=== PATIENT | female | born 1950 | race Caucasian/White ===

== ENCOUNTER → 2017-11-08 21:13 | Outpatient (CLI) | payer OTHER, SELFPAY ==
[2017-11-08 21:46] LABS: Alkaline Phosphatase 137 U/L (45-117)
== END ==
PROVIDERS: Visit Provider Nurse Practitioner
DX: R74.8 Abnormal levels of other serum enzymes (principal)
CPT/HCPCS: 84075

== ENCOUNTER → 2017-12-21 20:56 | Outpatient (CLI) | payer OTHER, SELFPAY ==
[2017-12-21 21:05] LABS: Absolute Lymphocyte Count 2.05 X10^3/ul (0.83-4.51); Basophil# 0.02 X10^3/uL; Basophil% 0.3 % (0-1); Eosinophil# 0.24 X10^3/uL; Hematocrit 41.7 % (37-47); Hemoglobin 13.5 g/dl (12.0-15.0); Lymphocyte # 2.05 X10^3/ul (4.0); Lymphocyte % 25.9 % (19-41); Mean Corp Hgb Conc 32.4 g/gl (32-36); Mean Corpuscular Hgb 30.2 pg (27.0-32.0); Mean Corpuscular Volume 93.3 fL (81-99); Mean Platelet Vol. 10.8 fl (6.2-12.0); Monocyte# 0.61 X10^3/uL; Monocyte% 7.7 % (0-10); Neutrophil # 4.98 X10^3/uL (2.7-7.7); Neutrophil % 62.7 % (47-70); POSITIVE COUNT NO; POSITIVE DIFFERENTIAL NO; POSITIVE MORPHOLOGY NO; Platelet Count 259 K/mm3 (150-450); RBC Distribution Width CV 13.2 % (11.6-14.6); RBC Distribution Width SD 43.9 fl (35.1-43.9); Red Blood Count 4.47 M/mm3 (4.2-5.4); White Blood Count 7.9 K/mm3 (4.4-11.0)
[2017-12-21 21:25] LABS: ALB/GLOB Ratio 1.1 RATIO (0.9-2.4); AST(SGOT) 26 U/L (15-37); Alanine Aminotransfer ALT/SGPT 37 U/L (13-56); Albumin, Serum 3.8 g/dL (3.2-5.0); Alkaline Phosphatase 122 U/L (45-117); Amylase 44 U/L (25-115); Anion Gap 4 (5-15); BUN 20 mg/dL (7-18); BUN/Creat Ratio 20.2 RATIO (10-20); Calcium,Total 8.7 mg/dL (8.5-10.1); Chloride 105 mmol/L (98-107); Creatinine, Serum 0.99 mg/dL (0.55-1.02); EST Glomerular Filtration Rate 59 mL/min (>60); Est Glom Filt Rate - Afr Amer 72 mL/min (>60); Globulin 3.6 g/dL (2.2-4.2); Glucose 91 mg/dL (74-106); Lipase 88 U/L (73-393); Potassium 4.2 mmol/L (3.5-5.1); Protein, Total 7.4 g/dL (6.4-8.2); Sodium Level 138 mmol/L (136-145); Thyroid Stim Hormone (TSH) 2.03 uIU/mL (0.358-3.74)
== END ==
PROVIDERS: Referring Provider Nurse Practitioner; Visit Provider Nurse Practitioner
DX: K57.92 Diverticulitis of intestine, part unspecified, without perforation or abscess without bleeding (principal); R35.0 Frequency of micturition; R10.30 Lower abdominal pain, unspecified; R13.10 Dysphagia, unspecified
CPT/HCPCS: 80053; 82150; 83690; 84443; 85025; 87086; 87088

== ENCOUNTER → 2018-01-12 22:30 | Outpatient (CLI) | payer OTHER, SELFPAY ==
[2018-01-12 22:53] LABS: Basophil# 0.04 X10^3/uL; Basophil% 0.5 % (0-1); Eosinophil# 0.28 X10^3/uL; Eosinophils% 3.8 % (0-5); Hematocrit 41.1 % (37-47); Hemoglobin 13.5 g/dl (12.0-15.0); Lymphocyte % 32.8 % (19-41); Mean Corp Hgb Conc 32.8 g/gl (32-36); Mean Corpuscular Hgb 30.6 pg (27.0-32.0); Mean Corpuscular Volume 93.2 fL (81-99); Mean Platelet Vol. 11.2 fl (6.2-12.0); Monocyte# 0.61 X10^3/uL; Monocyte% 8.3 % (0-10); Neutrophil # 3.98 X10^3/uL (2.7-7.7); Neutrophil % 54.5 % (47-70); Platelet Count 242 K/mm3 (150-450); RBC Distribution Width CV 13.2 % (11.6-14.6); RBC Distribution Width SD 43.9 fl (35.1-43.9); Red Blood Count 4.41 M/mm3 (4.2-5.4); White Blood Count 7.3 K/mm3 (4.4-11.0)
[2018-01-12 22:56] LABS: POSITIVE COUNT NO; POSITIVE DIFFERENTIAL NO; POSITIVE MORPHOLOGY NO
[2018-01-12 23:06] LABS: AST(SGOT) 25 U/L (15-37); Alanine Aminotransfer ALT/SGPT 45 U/L (13-56); Albumin, Serum 3.7 g/dL (3.2-5.0); Alkaline Phosphatase 144 U/L (45-117); Anion Gap 6 (5-15); BUN 14 mg/dL (7-18); Calcium,Total 8.3 mg/dL (8.5-10.1); Chloride 108 mmol/L (98-107); Creatinine, Serum 0.82 mg/dL (0.55-1.02); EST Glomerular Filtration Rate 73 mL/min (>60); Est Glom Filt Rate - Afr Amer 89 mL/min (>60); Globulin 3.8 g/dL (2.2-4.2); Glucose 120 mg/dL (74-106); Lipase 85 U/L (73-393); Potassium 4.1 mmol/L (3.5-5.1); Protein, Total 7.5 g/dL (6.4-8.2); Sodium Level 141 mmol/L (136-145)
== END ==
PROVIDERS: Referring Provider Nurse Practitioner; Visit Provider Nurse Practitioner
DX: R10.30 Lower abdominal pain, unspecified (principal)
CPT/HCPCS: 80053; 83690; 85025

== ENCOUNTER → 2018-01-23 12:47 | Outpatient (CLI) | payer MEDICARE, SELFPAY ==
--- NOTE | 2018-01-23 12:52 | CT_ITS ---
STUDY: CT ABDOMEN AND PELVIS WITH CONTRAST REASON FOR EXAM: Female, 67 years old. Lower abdominal pain. Bladder pressure. RADIATION DOSAGE (If Supplied By Facility): CTDIvol = ( 18.31 ) mGy, DLP = ( 1822.49 ) mGycm TECHNIQUE: Transaxial images were obtained from the dome of the diaphragm to the symphysis pubis with oral contrast. 100 ml of Isovue 300 contrast was administered. Sagittal and coronal images were reconstructed. Individualized dose optimization techniques were used for this CT. COMPARISON: None. FINDINGS: The visualized lung bases are clear. The visualized portions of the heart and pericardium are within normal limits. There are no calcified gallstones present. The liver is within normal limits. There are no suspicious hepatic lesions. The spleen is normal in size. The pancreas is within normal limits. The adrenal glands are within normal limits. There are no renal or ureteral stones. There is no hydronephrosis. There are no focal renal lesions. There is a small hiatal hernia. There is a duodenal diverticulum noted. There is no bowel obstruction or inflammation. The appendix is not visualized, but there are no findings to suggest acute appendicitis. The aorta is normal in caliber. There is no abdominal or pelvic free air, free fluid, fluid collection or lymphadenopathy. The patient is status post hysterectomy. Urinary bladder is unremarkable. There is no evidence of urinary bladder prolapse on this exam. There are no destructive osseous lesions. There are degenerative changes noted in the spine. CT/Abdomen/Pelvis WITH Contrast IMPRESSION: Status post hysterectomy. Normal urinary bladder. No bowel obstruction or inflammation. Small hiatal hernia. Duodenal diverticulum. Electronically Signed: Daniel Pisano, at 16:08 EST Tel , Service support ,
== END ==
PROVIDERS: Family Provider Nurse Practitioner; PCP Nurse Practitioner; Referring Provider Nurse Practitioner; Visit Provider Nurse Practitioner
DX: R10.30 Lower abdominal pain, unspecified (principal); R74.8 Abnormal levels of other serum enzymes
CPT/HCPCS: 74177; Q9967; A4216

== ENCOUNTER → 2019-11-16 | Outpatient (CLI) | payer MEDICARE, SELFPAY ==
[2019-11-15 19:56] VITALS: BMI 31.3
== END | disposition home or self-care (01) ==
PROVIDERS: PCP Nurse Practitioner; Referring Provider Nurse Practitioner; Visit Provider Nurse Practitioner
DX: L01.03 Bullous impetigo (principal); B95.7 Other staphylococcus as the cause of diseases classified elsewhere
CPT/HCPCS: 87070; 87075; 87077; 87186; 87205

== ENCOUNTER → 2020-09-05 | Outpatient (CLI) | payer MEDICARE, SELFPAY ==
[2020-09-05 15:12] VITALS: BMI 32.0
[2020-09-05 22:31] LABS: Absolute Lymphocyte Count 1.77 X10^3/uL (0.83-4.51); Absolute Neutrophil Count 5.9 X10^3/uL (2.0-7.7); Basophil# 0.03 X10^3/uL; Basophil% 0.3 % (0-1); Eosinophil# 0.37 X10^3/uL; Eosinophils% 4.2 % (0-5); Hematocrit 39.9 % (37-47); Hemoglobin 12.3 g/dL (12.0-15.0); Lymphocyte # 1.77 X10^3/ul (0.83-4.51); Lymphocyte % 20.2 % (19-41); Mean Corp Hgb Conc 30.8 g/dL (32-36); Mean Corpuscular Hgb 30.3 pg (27.0-32.0); Mean Corpuscular Volume 98.3 fL (81-99); Mean Platelet Vol. 11.7 fl (6.2-12.0); Monocyte# 0.63 X10^3/uL; Monocyte% 7.2 % (0-10); NRBC Flagged by Analyzer 0 % (0-5); Neutrophil # 5.93 X10^3/uL (2.7-7.7); Neutrophil % 67.6 % (47-70); Platelet Count 216 K/mm3 (150-450); RBC Distribution Width CV 13.2 % (11.6-14.6); RBC Distribution Width SD 48.4 fl (35.1-43.9); Red Blood Count 4.06 M/mm3 (4.2-5.4); White Blood Count 8.8 K/mm3 (4.4-11.0)
[2020-09-05 22:53] LABS: ALB/GLOB Ratio 1.2 RATIO (0.9-2.4); AST(SGOT) 19 U/L (15-37); Alanine Aminotransfer ALT/SGPT 30 U/L (13-56); Albumin, Serum 3.5 g/dL (3.2-5.0); Alkaline Phosphatase 114 U/L (45-117); Anion Gap 5 (5-15); BUN 13 mg/dL (7-18); BUN/Creat Ratio 16.8 RATIO (10-20); Calcium,Total 8.8 mg/dL (8.5-10.1); Chloride 109 mmol/L (98-107); Cholesterol 172 mg/dL (200); Creatinine, Serum 0.77 mg/dL (0.55-1.02); EST Glomerular Filtration Rate 78 mL/min (>60); Est Glom Filt Rate - Afr Amer 95 mL/min (>60); Glucose 104 mg/dL (74-106); High Density Lipoprotein 46 mg/dL; Potassium 4.4 mmol/L (3.5-5.1); Protein, Total 6.5 g/dL (6.4-8.2); Sodium Level 142 mmol/L (136-145); Triglycerides 261 mg/dL; Very Low Density Lipoprotein 52 mg/dL (5-40)
== END | disposition home or self-care (01) ==
PROVIDERS: PCP Nurse Practitioner; Referring Provider Nurse Practitioner; Visit Provider Nurse Practitioner
DX: Z00.00 Encounter for general adult medical examination without abnormal findings (principal); E78.5 Hyperlipidemia, unspecified; F32.9 Major depressive disorder, single episode, unspecified
CPT/HCPCS: 80053; 80061; 85025

== ENCOUNTER → 2022-04-05 | Outpatient (CLI) | payer MEDICARE, SELFPAY | END | disposition home or self-care (01) | PROVIDERS: PCP Nurse Practitioner; Visit Provider Nurse Practitioner | DX: N30.90 Cystitis, unspecified without hematuria (principal); Z94.83 Pancreas transplant status; R30.0 Dysuria | CPT/HCPCS: 87086; 87088 ==

== ENCOUNTER 2024-06-01 10:42 | Emergency (ER) | payer MEDICARE, SELFPAY ==
[2024-06-01 10:43] VITALS: BP 162/95; PULSE 107; RESP 18; TEMP 36.4; O2SAT 94; BMI 32.0
--- NOTE | 2024-06-01 10:48 | EKG12_ITS ---
Test Reason : CP Blood Pressure : */* mmHG Vent. Rate : 102 BPM Atrial Rate : 102 BPM P-R Int : 144 ms QRS Dur : 82 ms QT Int : 334 ms P-R-T Axes : 38 10 57 degrees QTcB Int : 435 ms Critical Test Result: STEMI Sinus tachycardia with Premature supraventricular complexes ST elevation consider inferior injury or acute infarct Confirmed by THERESA MOY, KATHIE ([id number]), research editor MORENO RAUSCH ([id number]) on 06/04/2024 6:48:10 AM Referred By: Remington Moya Confirmed By: KATHIE CARDENAS MD
[2024-06-01 10:50] VITALS: BP 173/97; PULSE 114; RESP 22; O2SAT 99
[2024-06-01] MEDS: Heparin Injection (Vial) 5,000 UNIT/ML VIAL 4000 UNIT IV (10:58)
[2024-06-01] MEDS: TICAGRELOR 90 MG TABLET 180 MG PO (10:58)
[2024-06-01] MEDS: Aspirin 81 MG TAB.CHEW 162 MG PO (10:58)
--- NOTE | 2024-06-01 10:58 | ED.VIS.CHEST ---
HPI History of Present Illness Chief Complaint: Chest Pain Informant: patient Narrative Narrative: Patient presents with chest tightness that started mildly about an hour prior to arrival, and got worse. She feels a little heaviness up into her neck. She has had no palpitations, diaphoresis, significant dyspnea, or discomfort in her arm. No vomiting or nausea. She states this feels similar to when she had a prior heart attack and felt maybe she was having another 1. She was light exertion at the time, getting out of her car. She states that prior heart attack she was diagnosed with was at [facility], she states she had a heart cath and was told that the blockage was in the back of her heart and she did not have angioplasty or stent and they treated her medically, has been taking aspirin ever since and she took 2 baby aspirin prior to coming here, but she still is a heavy smoker. 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 Pneumonia LUNG CANCER 2006 Home Medications ?Medication ?Instructions ?Recorded ?Last Taken ?Type bupropion HCl 150 mg tablet,12 hr 150 mg PO BID #60 ea 04/05/18 Unknown Rx sustained-release (Wellbutrin SR) atorvastatin 40 mg tablet 40 mg PO QHS 11/15/19 Unknown History vitamins A,C,H-sowj-katuwq 4,296 1 cap PO BID 04/03/20 Unknown History mcg-226 mg-90 mg capsule (PreserVision AREDS) lansoprazole 15 mg capsule,delayed 15 mg PO DAILY 09/05/20 Unknown History release albuterol sulfate 0.63 mg/3 mL 0.63 mg (3 mL) inhalation Q4H #30 04/05/22 Unknown Rx solution for nebulization mL aspirin 81 mg tablet,delayed 81 mg PO DAILY 04/05/22 Unknown History release metoprolol succinate 50 mg 50 mg PO DAILY 04/05/22 Unknown History tablet,extended release 24 hr amoxicillin 875 mg-potassium 1 tab PO BID #20 tabs 08/11/22 Unknown Rx clavulanate 125 mg tablet mupirocin 2 % topical ointment 1 applic topical TID #22 grams 08/11/22 Unknown Rx prednisone 10 mg tablet 20 mg (2 x 10 mg) PO BID PRN 08/11/22 Unknown Rx poison radha 4 days #30 tabs tiotropium bromide 18 mcg capsule 1 cap inhalation DAILY COPD #90 08/11/22 Unknown Rx with inhalation device inhalations Allergy/AdvReac Type Severity Reaction Status Date / Time Latex, Natural Rubber Allergy Severe UNK Verified 12/21/17 17:45 Sulfa (Sulfonamide Allergy Severe UNK Verified 12/21/17 17:45 Antibiotics) Family History (Reviewed 08/12/22 @ 13:01 by Nadia Ramon SPIRAL WINDING MACHINE HELPER, SPIRAL WINDING MACHINE HELPER-C) Other Goiter Hypertension Lung cancer Surgical History ADHESIONS FH: MARCELA-BSO (total abdominal hysterectomy and bilateral salpingo-oophorectomy) HERNIAS LOBECTOMY Status post coil embolization of cerebral aneurysm stent in brain for aneurysm Social History Smoking Status: Current every day smoker tobacco type: cigarettes ROS ROS ED Constitutional Constitutional ED: Reports fatigue; Denies chills or fever(s) Eyes Eyes: Denies change in vision or diplopia ENT ENT ED: Denies rhinorrhea or sore throat Cardiovascular Cardiovascular: Reports as per HPI and chest pain; Denies palpitations Respiratory/Chest Respiratory/Chest: Denies cough or dyspnea Gastrointestinal Gastrointestinal: Denies abdominal pain, diarrhea, nausea or vomiting Genitourinary Genitourinary ED: Denies dysuria or hematuria Musculoskeletal Musculoskeletal: Denies back pain or neck pain Integumentary Denies abscess or rash Neurologic Neurologic: Denies headache(s), paresthesias or weakness Psychiatric Psychiatric: Denies anxiety or suicidal thoughts EXAM Physical Exam Const Vital Signs: 06/01/24 10:42 06/01/24 10:43 06/01/24 10:48 Temperature 97.6 F L Temperature Source Temporal Pulse Rate 107 H Respiratory Rate 18 Respiratory Effort Normal Non-Labored Blood Pressure 162/95 H Blood Pressure Mean 117 Pulse Ox 94 Oxygen Delivery Method Room Air Room Air 06/01/24 10:50 06/01/24 11:41 Temperature 98.0 F Temperature Source Pulse Rate 94 Respiratory Rate 22 H 24 H Respiratory Effort Blood Pressure 173/97 H 142/82 H Blood Pressure Mean 102 Pulse Ox 94 Oxygen Delivery Method Positive well nourished and well developed Constitutional Narrative: No diaphoresis General Appearance ED: well developed and NAD HEENT Reports moist mucous membranes normocephalic and atraumatic Eyes PERRL and EOMs intact bilaterally Neck full ROM and supple Resp normal respiratory effort and clear to auscultation bilaterally Cardio regular rate, regular rhythm and no murmurs Rate: other Other Details: Mild tachycardia GI non-tender and non-distended Auscultation: normoactive bowel sounds Palpation: soft Back/Spine no CVA tenderness General Back: other FROM Extremity normal to inspection General Extremety ED: Negative for edema, pulses abnormal or tenderness General Extremity: Negative for edema or pulses abnormal Neuro oriented x3, CN's II-XII intact bilaterally and no sensory deficits noted Sensorium / Orientation: awake and alert Motor Exam: strength 5/5 throughout Skin no rashes or lesions noted and no wounds Heart Score History: Highly Suspicious ECG: Significant ST-Depression Age: >/= 65 years Risk Factors: >/= 3 Risk Factors or History of CAD Score: 8 MDM MDM MDM Narrative Medical decision making narrative: EKG was done prior to my seeing the patient, handed to me in the hallway by the investment recovery technician out of concern for acute injury. I agree, the EKG shows some mild ST elevations inferiorly, and taller ST elevations in the septal region. It is possible that this is involving the circumflex. It is consistent with a STEMI especially in context of the patient's symptoms. STEMI alert was called, however we do not have interventional coverage at this time today. Since the patient was at [facility] Before she prefers to go back there. In the meantime, she was given aspirin, Brilinta, heparin bolus. Emergent EMS transfer put on standby 1 view chest x-ray on my interpretation shows narrow mediastinum and no other acute abnormalities, she does appear to have some atelectasis in part of the left upper lobe. She does not have pain radiating into her back and her radial pulses are equal, arguing against dissection here. Pt stable until transferred by helicopter EMS. History & Record Review Discussion w/independent historian: Patient Lab Data Attestation: I reviewed the patient's lab results. Labs: Laboratory Results - last 24 hr 06/01/24 11:39 WBC 9.2 RBC 4.54 Hgb 13.6 Hct 41.2 MCV 90.7 MCH 30.0 MCHC 33.0 RDW Std Deviation 43.3 RDW Coeff of Padmini 13.1 Plt Count 245 MPV 10.2 Immature Gran % (Auto) 0.300 Neut % (Auto) 69.4 Lymph % (Auto) 20.3 [place] % (Auto) 7.2 Eos % (Auto) 2.4 Baso % (Auto) 0.4 Absolute Neuts (auto) 6.4 Absolute Lymphs (auto) 1.87 Nucleated RBC % 0 Sodium 142 Potassium 3.7 Chloride 108 Carbon Dioxide 22.6 Anion Gap 12 BUN 14 Creatinine 0.63 L Estim Creat Clear Calc 58.71 Est GFR (MDRD) Non-Af 93 BUN/Creatinine Ratio 21.5 H Glucose 147 H Calcium 8.7 Troponin T High Sens 33 H Radiography Diagnostic Testing: Clinical Impression(s) from Imaging Studies Chest X-Ray 06/01/24 11:00 IMPRESSION: Cardiomegaly with mild congestion. Reading Location: [facility] Rhythm Strip Rhythm Strip: Sinus Tach Rate: 102 Ectopy: None EKG Initial EKG: Attestation: I personally reviewed and interpreted this EKG as follows: Interpretation: Sinus Rhythm and S-T Elevation (see MDM) Prior EKG tracings: not available for review Management Discussion w/another healthcare provider: Transmitter Operator (Cardiology Dr. Meade ([facility]); Cardiology [facility]) Critical Care Time Critical Care Time: Yes Critical care time (excluding procedures): 30-74 minutes (46 min), Including time spent:, Discussing w/Patient &/or Family/Dispatcher Chief Coal Slurry, Discussing w/Consultants, Arranging Admission or Transfer and Performing Direct Patient Care at Bedside Discharge Plan Triage Chief Complaint: Chest Pain ED Provider: Randell Guevara Dx/Rx/DC Orders Clinical Impression: ST elevation (STEMI) myocardial infarction Prescriptions: No Action bupropion HCl [Wellbutrin SR] 150 mg tablet sustained-release 12 hr 150 mg PO BID Qty: 60 12RF Rx Instructions: MERY Patient is suicidal on the generic brand atorvastatin 40 mg tablet 40 mg PO QHS PreserVision AREDS [id number],320-226-200 [id number] capsule 1 cap PO BID lansoprazole 15 mg capsule,delayed release(DR/EC) 15 mg PO DAILY metoprolol succinate 50 mg tablet extended release 24 hr 50 mg PO DAILY aspirin 81 mg tablet,delayed release (DR/EC) 81 mg PO DAILY albuterol sulfate 0.63 mg/3 mL solution for nebulization 0.63 mg inhalation Q4H Qty: 30 12RF prednisone 10 mg tablet 20 mg PO BID PRN (Reason: poison radha) 4 Days Qty: 30 1RF Rx Instructions: 2 po bid 4D,1 po bid for 4 D, 1 po qd for 4D 1/2 po qd for2 D mupirocin 2 % ointment 1 applic topical TID Qty: 22 6RF tiotropium bromide 18 mcg capsule, w/inhalation device 1 cap inhalation DAILY Qty: 90 3RF Rx Instructions: puncture 1 cap using device; one dose = 2 inhalations amoxicillin-pot clavulanate 875-125 mg tablet 1 tab PO BID Qty: 20 0RF Primary Care Provider: aNdia Ramon NP Referrals: Nadia Ramon NP, SPIRAL WINDING MACHINE HELPER-C [Primary Care Provider] - Print Language: Wolof Disposition Disposition: Acute Care Hospital Discharge Location: [facility] Discharge Date/Time: 06/01/24 13:25
--- NOTE | 2024-06-01 11:00 | RAD_ITS ---
EXAM: XR Chest, 1 View CLINICAL INDICATION: CHEST PAIN TECHNIQUE: Frontal view of the chest. COMPARISON: No relevant prior studies available. FINDINGS: LUNGS AND PLEURAL SPACES: See below. HEART: Cardiomegaly with mild congestion. MEDIASTINUM: Unremarkable. Normal mediastinal contour. BONES/JOINTS: Unremarkable. No acute fracture. RAD/Chest 1 View (Portable) IMPRESSION: Cardiomegaly with mild congestion. Reading Location[facility]
[2024-06-01 11:41] VITALS: BP 142/82; PULSE 94; RESP 24; TEMP 36.7; O2SAT 94
[2024-06-01 11:51] LABS: Absolute Lymphocyte Count 1.87 X10^3/uL (0.83-4.51); Absolute Neutrophil Count 6.4 X10^3/uL (2.0-7.7); Basophil# 0.04 X10^3/uL; Basophil% 0.4 % (0-1); Eosinophil# 0.22 X10^3/uL; Eosinophils% 2.4 % (0-5); Hematocrit 41.2 % (37-47); Hemoglobin 13.6 g/dL (12.0-15.0); Lymphocyte # 1.87 X10^3/ul (0.83-4.51); Lymphocyte % 20.3 % (19-41); Mean Corpuscular Volume 90.7 fL (81-99); Mean Platelet Vol. 10.2 fl (6.2-12.0); Monocyte# 0.66 X10^3/uL; Monocyte% 7.2 % (0-10); NRBC Flagged by Analyzer 0 % (0-5); Neutrophil # 6.41 X10^3/uL (2.7-7.7); Neutrophil % 69.4 % (47-70); Platelet Count 245 K/mm3 (150-450); RBC Distribution Width CV 13.1 % (11.6-14.6); RBC Distribution Width SD 43.3 fl (35.1-43.9); Red Blood Count 4.54 M/mm3 (4.2-5.4); White Blood Count 9.2 K/mm3 (4.4-11.0)
[2024-06-01 12:23] LABS: Anion Gap 12 (5-15); BUN 14 mg/dL (4-19); BUN/Creat Ratio 21.5 RATIO (10-20); Calcium,Total 8.7 mg/dL (7.6-11.0); Carbon Dioxide 22.6 mmol/L (21.0-32.0); Chloride 108 mmol/L (98-108); Creatinine, Serum 0.63 mg/dL (0.70-1.20); EST Glomerular Filtration Rate 93 (>60); Estimated Creatinine Clearance 58.71 ml/min (50-250); Glucose 147 mg/dL (70-99); Potassium 3.7 mmol/L (3.3-5.1); Sodium Level 142 mmol/L (133-145); Troponin T High Sensitivity 33 ng/L (<=14)
--- NOTE | 2024-06-01 14:58 | CM.ED ---
Social Work Reason for visit: STEMI alert SW met with patient who was alert and oriented , sitting up in bed. Patient stated she was on her way through town to [place] her mother who is 100 years old, to go look at arrangements when she started to feel back. Patient states she has had heart issues in the past and knew she needed to be checked out. Patient was very talkative, telling SW about previous injuries and diagnosis. Emotional support provided. No further needs identified at this time. Alma Sebastian, ROLL CAPPER, BANKING MANAGEMENT CONSULTING MANAGER
== END 2024-06-01 13:25 | disposition short-term general hospital (02) ==
PROVIDERS: Emergency Provider Emergency Medicine; PCP Nurse Practitioner; Visit Provider Emergency Medicine
DX: I21.3 ST elevation (STEMI) myocardial infarction of unspecified site (principal); J44.9 Chronic obstructive pulmonary disease, unspecified; M79.7 Fibromyalgia; K21.00 Gastro-esophageal reflux disease with esophagitis, without bleeding; F17.210 Nicotine dependence, cigarettes, uncomplicated; I25.2 Old myocardial infarction; Z79.82 Long term (current) use of aspirin; Z79.899 Other long term (current) drug therapy
CPT/HCPCS: 71045; 80048; 84484; 85025; 93005; 96374; 96375; 99285; A4216